=== PATIENT | male | born 1990 | race Caucasian/White ===

== ENCOUNTER 2024-07-16 23:33 | Emergency (ER) | payer MEDICAID ==
[~2024-07-16] VITALS: Ht 180.3 cm; Wt 85.0 kg
[2024-07-16 23:43] VITALS: BP 126/76; PULSE 71; RESP 18; TEMP 98.1; O2SAT 99
[2024-07-17] MEDS: ACETAMINOPHEN 500 MG TABLET PO ONE (01:43)
[2024-07-17] MEDS: IBUPROFEN 600 MG TABLET PO ONE (01:43)
== END 2024-07-17 01:56 ==
LOC: EMS 23:33
DX: S83.92XA Sprain of unspecified site of left knee, initial encounter (principal); X58.XXXA Exposure to other specified factors, initial encounter; Y93.89 Activity, other specified; Y92.89 Other specified places as the place of occurrence of the external cause; Y99.8 Other external cause status
CPT/HCPCS: 99283